=== PATIENT | female | born 1980 | race Caucasian/White ===

== ENCOUNTER 2018-12-14 15:13 | Emergency (ER) | payer SELFPAY ==
[2018-12-14] MEDS ORDERED: Betamethasone Soluspan 30 mg/5mL Inj Susp IM ONE (15:54)
[2018-12-14 20:35] VITALS: BP 102/59; PULSE 93
== END 2018-12-14 16:34 | disposition home or self-care (01) ==
LOC: C.EROB 15:13
DX: O47.03 False labor before 37 completed weeks of gestation, third trimester (principal); Z3A.35 35 weeks gestation of pregnancy
CPT/HCPCS: 96372; 99283; J0702

== ENCOUNTER 2018-12-15 15:40 | Emergency (ER) | payer SELFPAY ==
[2018-12-15 16:05] VITALS: BMI 23.5
[2018-12-15] MEDS ORDERED: Betamethasone Soluspan 30 mg/5mL Inj Susp IM ONE (16:24)
[2018-12-15 17:30] LABS: SQUAMOUS EPITHIAL 8 /hpf (0-5); URINE BACTERIA RARE (<OCC); URINE BILIRUBIN NEGATIVE (NEGATIVE); URINE BLOOD 1+ (NEGATIVE); URINE CLARITY Hazy (Clear); URINE COLOR Amber (YELLOW); URINE GLUCOSE (UA) 1+ mg/dL (Normal); URINE LEUKOCYTE ESTERASE NEG Leu/uL (Negative); URINE PROTEIN NEGATIVE (NEGATIVE); URINE UROBILINOGEN NORMAL mg/dL (0.2-1.0)
--- NOTE | 2018-12-15 17:30 | OBHP ---
Datetime: 12/15/2018 16:54 IP Adm Impression: , intrauterine ; No Active Labor; Intact Membranes IP Chief Complaint Other: second dose celestone IP Admit Plan: Observation/Evaluation Admit Comment, IP Provider: 38 y/o at 36w+0d ANJEL 01/[birth year] presents to triage from home with c /o of decreased movement since yesterday. She was in triage yesterday from Dr. Sun's OBGYN cl in for r/o ROM, which was negatve . Patient continues to deny leakage of fluid or having any vagina l discharge or vaginal bleeding. Pt received first dose of Celestne yesterday, per Dr. Sun's reques t and should receive her second dose today. Patient has a new complaint of decreased movement. She did not feel baby move after breakfas t and felt a little bit after lunch. Unable to provide number of contractions per hour, but she endor ses there can be a span of an hour without feeling movement. Patient also with "chest tightness " that started today and happens once in a while, but denies shortness of breath, cough or wheezing. Patient denies fever, chills, nausea, vomiting, dysuria. 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 ID: [id number]. 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 Sun for a few times when she came to the [place] a few we eks ago. Allergies: NKDA PMHx: denies Medications: PNV PSHx: Salpingectomyfor Ectopic SocHx: Patient came about a month ago from [place] with spouse and child. PE: see above A/P: 1- 36 weeks pregnanct female 2- Decreased Movement 3. Ocassional chest tightness without SOB and negative exam 4-Second dose of Celestone 12mg IM given, last dose given 24h before in triage yesterday 5-US ordered with BPP 6- NST reactive 7- Will continue monitoring 8- Cervical exam to follow after US -will determine from US and exam whether or not to admit for labor or discharge with labor precautions Chest tightness likely 2/2 growth in . -Plan discussed with Dr Lit Nowak DO PGY-1 Pt seen and examined with Dr. Nowak, per Dr. Sun's request, and agreed with her findings and POC Abdomen - PN: Normal Lungs - PN: Normal Heart - PN: Normal Neurologic - PN: Normal HEENT - PN: Normal General - PN: Normal Presentation-Admit: Vertex FHR - Baseline A Provider: 130 Comments, ACOG Physical Exam: -gravid uterus, nontender Gestation - Est Wks by US: 36.0 IP Hx Assessment: The History has been Reviewed and is Current EGA AdmitDate IP: 36.0 IP Chief Complaint: Decreased movement; Other NICHD Variability Prov Fetus A: Moderate 6-25bpm NICHD Accel Fetus A IP Provider: 15X15 NICHD Decel Fetus A IP Provider: None Datetime: 12/14/2018 15:58 Membranes, Provider: Intact Contraction Comments Provider: irregular Pool Provider: Negative Nitrazine Provider: Negative Vital Signs Provider: Reviewed FHR Category Provider Fetus A: Category I Dilatation, Provider: 3 Effacement, Provider: 60 Station, Provider: -3
--- NOTE | 2018-12-15 17:59 | US ---
Date of service: 12/15/2018 PROCEDURE: Biophysical profile HISTORY: Decreased Movement COMPARISON: None TECHNIQUE: Standard protocol for this study/examination. FINDINGS: FINDINGS: Biophysical profile score 8/8 Based on the followin. breathing movements: 2/2 2. Gross body movement: 2/2 3. tone: 2/2 4. Qualitative amniotic fluid index: 2/2 Cephalic presentation. Fundal placenta. No evidence of abruption or previa Gestational age derived from LMP 37 weeks. ANJEL 01/05/2019. Gestational age derived from the following biometric parameters 37 weeks 2 days. ANJEL 01/03/2019. Biparietal diameter 9.14 cm Head circumference 32.66 cm Abdominal circumference 33.68 cm Femur length 7.35 cm Estimated weight 3220 g Calculated cardiac rate 137 beats per min. Closed cervix measuring 2.95 cm IMPRESSION: Biophysical profile score 8/8. Thirty-seven weeks 2 days live intrauterine gestation.
--- NOTE | 2018-12-15 19:36 | OBDCSUM ---
Datetime: 12/15/2018 18:28 Discharged to, Provider: Home Follow up at, Provider: Dr Sun Disch Instr Activity: Normal activity Disch Instr Diet: Regular Discharge Instructions, Provider: Routine instructions given Discharge Time: 12/15/2018 18:29 Follow up in weeks, Provider: 12/20/18 Disch Referrals: None Disch Activity Restrictions: No exercising; No lifting; Minimize stair-climbing; No sexual activity; Nothing in vagina - [place], tampons, douche Discharge Comment, Provider: 38 y/o at 36w+0d ANJEL 01/12/[birth year] presents to triage from home with c/o of decreased movement since yesterday. She was seen in triage yesterday [facility] for r/o ROM, which was negatve . Patient continues to deny leakage of fluid or having any vagina l discharge or vaginal bleeding. Pt received first dose of Celestone yesterday, per Dr. Sun's reque st and should receive her second dose today. Patient has a new complaint of decreased movement. She did not feel baby move after breakfas t and felt a little bit after lunch. Unable to provide number of contractions per hour, but she endor ses there can be a span of an hour without feeling movement. Patient also with "chest tightness " that started today and happens once in a while, but denies shortness of breath, cough or wheezing. Patient denies fever, chills, nausea, vomiting, dysuria. 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 ID: [id number]. 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 Sun for a few times when she came [place] the [place] a few we eks ago. Allergies: NKDA PMHx: denies Medications: PNV PSHx: Salpingectomyfor Ectopic SocHx: Patient came about a month ago from [place] with spouse and child. PE: see above A/P: 1- 36 weeks pregnanct female 2- Decreased Movement 3. Ocassional chest tightness without SOB and negative exam 4-Second dose of Celestone 12mg IM given, last dose given 24h before in triage yesterday 5-US ordered with BPP and WNL with IVONNE 13.4, BPP 8/8 and EFW 7#'s 4oz 6- NST reactive 7. SVE unchanged from yesterday /-3 and no contractions recorded or palpated- 8. Chest tightness likely 2/2 growth in . 9. Pt reassured and discharged home with instructions and with labor precautions Pt left in Stable and Satisfactory condition Discharge Diagnosis Prov Other: Decreased Feetal Movement
[2018-12-15 22:42] VITALS: BP 104/63; PULSE 98; RESP 19; TEMP 97.3
== END 2018-12-15 18:41 | disposition home or self-care (01) ==
LOC: C.EROB 15:40
DX: O36.8130 Decreased fetal movements, third trimester, not applicable or unspecified (principal); Z3A.36 36 weeks gestation of pregnancy
CPT/HCPCS: 76815; 76818; 81001; 96372; 99284; J0702

== ENCOUNTER 2018-12-25 13:20 | Inpatient (IN) | payer OTHER ==
[2018-12-25] MEDS ORDERED: Oxytocin 30 UNIT 30 UNITS/500 ML BAG IV SCH (13:30)
[2018-12-25] MEDS ORDERED: Lactated Ringer's 1,000 ML IV SCH (13:30)
[2018-12-25] MEDS ORDERED: Lactated Ringer's 1,000 ML IV ONE (13:33)
[2018-12-25 14:09] LABS: BASO % 0.2 % (0.0-2.0); EOS % 0.3 % (0.0-4.0); HEMOGLOBIN 11.3 g/dL (11.0-16.0); LYMPH # 1.7 K/uL (1.0-4.3); LYMPH % 14.4 % (20.0-40.0); MEAN CELL VOLUME 93.4 fL (81.0-99.0); MEAN CORPUSCULAR HEMOGLOBIN 30.7 pg (27.0-31.0); MEAN CORPUSCULAR HGB CONC 32.9 g/dL (33.0-37.0); MEAN PLATELET VOLUME 8.4 fL (7.2-11.7); MONO # 0.8 K/uL (0.0-0.8); MONO % 6.5 % (0.0-10.0); NEUT # 9.4 K/uL (1.8-7.0); NEUT % 78.6 % (50.0-75.0); NRBC % 0.1 % (0.0-2.0); RBC 3.67 Mil/uL (3.80-5.20); RED CELL DISTRIBUTION WIDTH 13.7 % (11.5-14.5); WHITE BLOOD COUNT 11.9 K/uL (4.8-10.8)
[2018-12-25] MEDS ORDERED: Oxytocin 30 UNIT 30 UNITS/500 ML BAG IV ONE ×2 (14:46→17:58)
[2018-12-25] MEDS ORDERED: Fentanyl/Bupivacaine HCl 250 ML EPI ONE (14:47)
[2018-12-25 14:56] LABS: ALB/GLOB RATIO 1.3 (1.0-2.1); ALT/SGPT 9 U/L (9-52); AST/SGOT 21 U/L (14-36); BLOOD UREA NITROGEN 12 mg/dL (7-17); CALCIUM 8.9 mg/dl (8.6-10.4); GFR NON-AFRICAN AMERICAN > 60
[2018-12-25] MEDS ORDERED: Lidocaine Hydrochloride 5 ML INJ ONE (15:06)
--- NOTE | 2018-12-25 15:42 | OBADHP ---
Datetime: 12/25/2018 14:48 FHR - Baseline A Provider: 150 Contraction Comments Provider: q5min Vital Signs Provider: Reviewed; Within Normal Limits NICHD Variability Prov Fetus A: Moderate 6-25bpm NICHD Accel Fetus A IP Provider: 15X15 FHR Category Provider Fetus A: Category I NICHD Decel Fetus A IP Provider: None Dilatation, Provider: 6-7 Effacement, Provider: 80 Station, Provider: -3 Datetime: 12/25/2018 13:34 IP Chief Complaint Other: active labor [address] Sun's office Admit Comment, IP Provider: 38 y/o at 38.3 ANJEL 01/05/[address] Sun presents to triage from Dr. Sun's office after she examined her and was found to be 7 cm cervical dilation. She was in tria ge on 12/14 to r/o ROM, which was negative, and 12/15 for a second dose of Celestone (see past H_P note s). Patient continues to deny leakage of fluid or having any vaginal discharge or vaginal bleeding. Patient states she feels baby move regularly, but unable to provide number of contractions per lenora r. Denies chest pain, shortness of breath, cough, wheezing, fever, chills, nausea, vomiting, dysuria. 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 ID: [id number]. 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 Sun for a few times when [place] the [place] e[place] ago. Allergies: NKDA PMHx: denies Medications: PNV PSHx: Salpingectomy for Ectopic SocHx: Patient came about a month ago from [place] with spouse and child. vitals: see above PE: see above A/P: 1- 38.3 weeks female 2- initiate labor protocol: ice chips, IVF, admit labs 3- monitoring/ NST reactive 4- Patient requests epidural. Anesthesia consult placed. 5- pending routine admission labs 6- Anticipate a vaginal delivery case discussed with Dr Lit Nowak DO PGY-1 Pt seen and examined with Dr. Nowak and agree with her findings and POC Pelvic Type - PN: Adequate Extremities - PN: Normal Abdomen - PN: Normal Back - PN: Normal Breast - PN: Not Done Lungs - PN: Normal Heart - PN: Normal Thyroid - PN: Not Done Neurologic - PN: Normal HEENT - PN: Not Done General - PN: Normal Presentation-Admit: Vertex Membranes, Provider: Intact Gestation - Est Wks by US: 38.3 IP Hx Assessment: The History has been Reviewed and is Current IP Chief Complaint: Uterine contractions; Other Genitourinary Exam: Normal DTRs - PN: Not Done EGA AdmitDate IP: 38.3 IP Adm Impression: Term, intrauterine ; Active labor; Intact Membranes IP Admit Plan: Admit to unit; Initiate labor protocol Datetime: 12/15/2018 16:54 Comments, ACOG Physical Exam: -gravid uterus, nontender Datetime: 12/14/2018 15:58 Pool Provider: Negative Nitrazine Provider: Negative
--- NOTE | 2018-12-25 15:47 | OBPN ---
Datetime: 12/25/2018 14:48 IP Progress Impression: Normal progression of labor IP Informed Consent Obtain: Vaginal Delivery IP Procedures: Sterile Vag Exam IP Progress Plan: Continue present management; Augmentation; Anesthesia consult; Anticipate Vaginal Delivery Contraction Comments Provider: q5min FHR - Baseline A Provider: 150 Gestation - Est Wks by US: 38.3 Presentation-Admit: Vertex IP Progress Note Comment: Patient seen and examined at bedside. Patient is requesting epidural anest hesia. Offers no other complaints at this time VS reviewed SVE: 6-7/80/-3 (per Dr. Murrieta) A/P: 38 year old at 38w3d who presents in active phase of labor -Category I tracing -Requesting epidural, anesthesia notified -Plan to start pitocin afterwards for augmentation -GBS negative, no antibiotics needed at this time Plan discussed with Dr Lit Mcghee DO PGY-2 Vital Signs Provider: Reviewed; Within Normal Limits NICHD Accel Fetus A IP Provider: 15X15 FHR Category Provider Fetus A: Category I NICHD Variability Prov Fetus A: Moderate 6-25bpm Dilatation, Provider: 6-7 Effacement, Provider: 80 Station, Provider: -3 NICHD Decel Fetus A IP Provider: None Datetime: 12/25/2018 13:34 Membranes, Provider: Intact Datetime: 12/14/2018 15:58 Pool Provider: Negative Nitrazine Provider: Negative
[2018-12-25 15:48] LABS: SQUAMOUS EPITHIAL 3 /hpf (0-5); URINE BACTERIA OCC (<OCC); URINE BILIRUBIN NEGATIVE (NEGATIVE); URINE BLOOD 3+ (NEGATIVE); URINE CLARITY Turbid (Clear); URINE GLUCOSE (UA) NORMAL (Normal); URINE LEUKOCYTE ESTERASE 3+ Leu/uL (Negative); URINE PROTEIN NEGATIVE (NEGATIVE); URINE UROBILINOGEN NORMAL mg/dL (0.2-1.0)
[2018-12-25 15:49] LABS: URINE COLOR YELLOW (YELLOW)
[2018-12-25 15:58] LABS: HEPATITIS B SURFACE AG Negative (NEGATIVE)
--- NOTE | 2018-12-25 18:09 | OBPN ---
Datetime: 12/25/2018 17:38 IP Progress Impression: Normal progression of labor; Reassuring heart rate IP Procedures: Artificial ROM; Sterile Vag Exam IP Progress Plan: Continue present management; Augmentation; Anticipate Vaginal Delivery Membranes, Provider: Ruptured Amniotic Fluid Color, Provider: Clear Contraction Comments Provider: q2min Vital Signs Provider: Reviewed Dilatation, Provider: 7 Effacement, Provider: 90 Station, Provider: -2 Datetime: 12/25/2018 17:20 IP Informed Consent Obtain: Vaginal Delivery FHR - Baseline A Provider: 150 Gestation - Est Wks by US: 38.3 Presentation-Admit: Vertex IP Progress Note Comment: Patient seen and examined at bedside, Per Dr. Sun's request She is s/p epidural and resting comfortably. On pitocin 8MMU for augmentation Contractions Q 2-3 minutes SVE slightly changed Vital signs stable SVE: /-3 A/P: 38 year old at 38w3d in active labor, s/p epidural on pitocin -We will continue pitocin for augmentation -Anticipate vaginal delivery Plan discussed with Dr Lit cMghee DO PGY-2 Pt seen and examined with Dr. Mcghee and her findings and Plan of Care NICHD Accel Fetus A IP Provider: 15X15 FHR Category Provider Fetus A: Category I NICHD Variability Prov Fetus A: Moderate 6-25bpm NICHD Decel Fetus A IP Provider: None
[2018-12-25] MEDS ORDERED: Bupivacaine HCl 0.5% PF (10 ml) Inj ONE (22:25)
--- NOTE | 2018-12-25 23:41 | OBPN ---
Datetime: 12/25/2018 23:38 IP Progress Impression: Normal progression of labor IP Informed Consent Obtain: Vaginal Delivery IP Progress Plan: Continue present management Membranes, Provider: Ruptured FHR - Baseline A Provider: 150 Gestation - Est Wks by US: 38.3 Presentation-Admit: Vertex IP Progress Note Comment: pt seen adn examined c/p pressure s/p epdurai VSS VE 10cm EF: cat I TOCO q 2-3 min A/P @ 38+ wks GA fully dilated start pushing anticep nsvp Vital Signs Provider: Reviewed FHR Category Provider Fetus A: Category I Dilatation, Provider: 10 Effacement, Provider: 100 Station, Provider: 1 NICHD Decel Fetus A IP Provider: None Datetime: 12/25/2018 19:55 IP Progress Impression Other: Slow progression of labor IP Procedures: Intrauterine Pressure Catheter; Sterile Vag Exam Amniotic Fluid Color, Provider: Clear Contraction Comments Provider: q2-3 min NICHD Accel Fetus A IP Provider: 15X15 NICHD Variability Prov Fetus A: Moderate 6-25bpm
[2018-12-25] MEDS ORDERED: Oxycodone/Acetaminophen 5/325 mg Tab PO PRN ×2 (23:45)
[2018-12-25] MEDS ORDERED: Benzocaine/Menthol 20%-0.5% Topical Spray (60 ml) TOP PRN (23:45)
--- NOTE | 2018-12-25 23:48 | OBDS ---
DELIVERY PERSONNEL Nurse Hadoop Developer Certified: N/A Delivery Doctor: Autumn Sun MD Scrub Nurse: N/A Fingerprinter: Sally Hart RN Anesthesiologist: Dr. Ann Freight Hustler: SAME Resident: N/A MATERNAL INFORMATION Delivery Anesthesia: Epidural Medications in Delivery: PITOCIN 20 UNITS IN 1L LR Placenta Cultured: No Maternal Complications: None Provider Comments: pt was fully dilated and pushing. Atruamtic, spontaneous delivery of head, no nuc maya cord. Atruatmic, spontaneo delivery of atnerio followed by posteior shoulder followed by deliver of body. Both oral and nasal passages of the baby were bulb suctioned. umbilical cord was clamped and cut. baby handed to mother on abodmen with katie sorenson. cord blood and cord gases collected and sen t x 2. Fundus Firm. Manual removal o fplacenta. Fundus firm, good hemsotais, first degree perienal la ceration noted adn repaired iwth 2-0 chormic. good hemostaiss, no complicaitns live femalse inta cephalic presntation agpars 9,9 weigh tof 7lbs 2 ounces ebl 300ml LABOR SUMMARY EDC: 01/05/2019 00:00 No. Babies in Womb: 1 Attempted: No Labor Anesthesia: Epidural LABOR INFORMATION Reason for Induction: Not Applicable Onset of Labor: 12/25/2018 12:00 Complete Dilatation: 12/25/2018 22:30 Oxytocin: Augmentation Group B Beta Strep: Negative MEMBRANES Membranes Rupture Method: Artificial Rupture of Membranes: 12/25/2018 17:30 Length of Rupture (hrs): 5.58 Amniotic Fluid Color: Clear Amniotic Fluid Amount: Small Amniotic Fluid Odor: Normal STAGES OF LABOR Stage 1 hrs: 10 Stage 1 min: 30 Stage 2 hrs: 0 Stage 2 min: 35 Stage 3 hrs: 0 Stage 3 min: 10 Total Time in Labor hrs: 11 Total Time in Labor min: 15 VAGINAL DELIVERY Episiotomy: None Laceration Extension: First Degree Laceration Repair: Yes Initial Vag Sponge Count: 10 Final Vag Sponge Count: 20 Initial Vag Sharps Count: 0 Final Vag Sharps Count: 2 Sponge Count Correct: Yes Sharps Count Correct: Yes Count Comment: ALL ACCOUNTED FOR BABY A INFORMATION Delivery Date/Time: 12/25/2018 23:05 Method of Delivery: Vaginal Born in Route : No : N/A Forceps: N/A Vacuum Extraction: N/A Shoulder Dystocia : No SHOULDER DYSTOCIA BABY A Delivery Date/Time: 12/25/2018 23:05 PRESENTATION/POSITION BABY A Presentation: Cephalic Cephalic Presentation: Vertex Breech Presentation: N/A PLACENTA INFORMATION BABY A Placenta Delivery Time : 12/25/2018 23:15 Placenta Method of Delivery: Manual Removal Placenta Status: Delivered SCORES BABY A Heart Rate 1 min: >100 bpm Resp Effort 1 min: Good Cry Reflex Irritability 1 min: Cough or Sneeze or Pulls Away Muscle Tone 1 min: Active Motion Color 1 min: Body [place], Extremities Blue Resuscitation Effort 1 min: N/A SCORE 1 MIN: 9 INFANT INFORMATION BABY A Gestational Age at Delivery: 38.3 Gestational Status: Term Outcome : Liveborn Condition : Stable Infant Sex: Female IDENTIFICATION/MEDS BABY A ID Band Number: [id number] ID Band Location: Left Leg; Left Arm Sensor Applied: Yes Sensor Number: [id number] Sensor Location : Cord Clamp Vitamin K Given : Not Given Erythromycin Given: Not Given WEIGHT/LENGTH BABY A Infant Birthweight (gms): 3225 Infant Weight (lb): 7 Infant Weight (oz): 2 Length Inches: 19.50 Length cms: 49.5 CORD INFORMATION BABY A No. Cord Vessels: #3 Nuchal Cord : N/A Cord Blood Taken: Yes Suction: None ASSESSMENT BABY A Complications: None Physical Findings at Delivery: Within Normal Limits Respirations: Appears Normal Stripper [place]/ALS Called : No Infant Care By: Kvng THOMAS RN Transferred To: [facility]
[2018-12-26 08:36] LABS: BASO % 0.1 % (0.0-2.0); EOS % 0.3 % (0.0-4.0); LYMPH # 1.4 K/uL (1.0-4.3); LYMPH % 8.8 % (20.0-40.0); MEAN CELL VOLUME 93.4 fL (81.0-99.0); MEAN CORPUSCULAR HEMOGLOBIN 31.7 pg (27.0-31.0); MEAN PLATELET VOLUME 8.8 fL (7.2-11.7); MONO % 6.5 % (0.0-10.0); NEUT % 84.3 % (50.0-75.0); PLATELET COUNT 191 K/uL (130-400); RBC 2.95 Mil/uL (3.80-5.20); RED CELL DISTRIBUTION WIDTH 14.2 % (11.5-14.5); WHITE BLOOD COUNT 15.4 K/uL (4.8-10.8)
[2018-12-26 08:38] LABS: HEMOGLOBIN 9.4 g/dL (11.0-16.0)
[2018-12-26 09:04] LABS: BANDS 1 % (0-2); BASOPHIL 1 % (0-2); LYMPHOCYTE 10 % (20-40); MONOCYTE 5 % (0-10); NEUTROPHIL 83 % (50-75); PLATELET ESTIMATE NORMAL (NORMAL); TOTAL CELLS COUNTED 100
[2018-12-26 09:08] LABS: ANISOCYTOSIS SLIGHT; HYPOCHROMIC SLIGHT; POIKILOCYTOSIS SLIGHT
[2018-12-26 09:09] LABS: LARGE PLATELETS PRESENT; TARGET CELLS SLIGHT
[2018-12-26] MEDS: Multiple Vitamins Tab PO SCH (09:46)
--- NOTE | 2018-12-26 14:42 | OBPPN ---
Datetime: 12/26/2018 10:13 PP Pain Prov: Within normal limits PP Nausea Prov: Denies PP Flatus Prov: Yes PP Breasts Prov: Not Done PP Heart Prov: Normal PP Lungs Prov: Normal PP Abdomen/Uterus Prov: Normal PP Lochia Prov: Not Done PP Vulva/Perineum Prov: Not Done PP CVA Tenderness Prov: Not Done PP Extremities Prov: Normal PP C/S Incision Prov: Not Applicable PP Progress Prov: Normal PP Impression Prov: Normal progression PP Plan Prov: Continue present management PP Progress Note Prov: 38 y/o G2 now P2 delivered a female 8 lbs 4 oz vaginally last night by Dr. Hawkins tel. Today day 1. Patient was seen this morning at bedside by her baby. She states she is overall doing well. Lochia discharge present but patient without complaints about it. She has changed a total of 3 pads overnight. Urinating without pain or difficulty. Patient endorses passing gas. Den ies nausea, vomiting, fevers, chills. 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 She plans on exclusively . vitals and physical exam: see above A/P: 38 y/o s/p ppd #1 with manual placenta removal -resumed regular diet -bowel regimen as prescribed -pain control as prescribed - education -contraception education -cbc -s/p anbtiiocs will discuss case with Dr. Dino Nowak DO PGY1 agree with above pt seen and examined repeat cbc pain mangmetn IP PP Procedures: None Vital Signs Provider PP: Reviewed; Within Normal Limits
[2018-12-26 17:17] VITALS: O2SAT 97
[2018-12-27 08:28] LABS: BASO % 0.4 % (0.0-2.0); EOS # 0.1 K/uL (0.0-0.7); EOS % 1.3 % (0.0-4.0); HEMOGLOBIN 9.2 g/dL (11.0-16.0); LYMPH # 2.1 K/uL (1.0-4.3); LYMPH % 18.9 % (20.0-40.0); MEAN CELL VOLUME 94.2 fL (81.0-99.0); MEAN CORPUSCULAR HEMOGLOBIN 30.5 pg (27.0-31.0); MEAN CORPUSCULAR HGB CONC 32.4 g/dL (33.0-37.0); MEAN PLATELET VOLUME 8.6 fL (7.2-11.7); MONO # 0.8 K/uL (0.0-0.8); MONO % 7.1 % (0.0-10.0); NEUT % 72.3 % (50.0-75.0); RBC 3.01 Mil/uL (3.80-5.20); RED CELL DISTRIBUTION WIDTH 14.1 % (11.5-14.5); WHITE BLOOD COUNT 11.1 K/uL (4.8-10.8)
[2018-12-27 08:32] VITALS: BP 102/57; PULSE 79; RESP 18
[2018-12-27] MEDS ORDERED: Measles, Mumps, and Rubella 0.5 ML VIAL SC ONE (09:21)
[2018-12-27] MEDS: Multiple Vitamins Tab PO SCH (09:50)
[2018-12-27 20:32] VITALS: TEMP 97
--- NOTE | 2018-12-28 11:33 | OBPPN ---
Datetime: 12/28/2018 11:27 PP Pain Prov: Within normal limits PP Nausea Prov: Denies PP Flatus Prov: Yes PP Breasts Prov: Normal PP Heart Prov: Normal PP Lungs Prov: Normal PP Abdomen/Uterus Prov: Normal PP Lochia Prov: Normal PP Vulva/Perineum Prov: Normal PP CVA Tenderness Prov: Normal PP Extremities Prov: Normal PP Plan Prov: Discharge PP Progress Note Prov: dealyed entry pt annia adn exmiend 12/27 no ocmpaints
== END 2018-12-27 14:45 | disposition home or self-care (01) | DRG 807 ==
LOC: C.EROB 13:20 → C.4D 13:26 → UNDOADMIN 13:26 → C.4D 16:20 → C.4M 12-26 00:50
PROVIDERS: ADMIT Obstetrics & Gynecology; ATTEND Obstetrics & Gynecology
PROC: 10E0XZZ Delivery of Products of Conception, External Approach (ICD-10-PCS; principal; 2018-12-25)
PROC: 10907ZC Drainage of Amniotic Fluid, Therapeutic from Products of Conception, Via Natural or Artificial Opening (ICD-10-PCS; 2018-12-25)
PROC: 0HQ9XZZ Repair Perineum Skin, External Approach (ICD-10-PCS; 2018-12-25)
DX: O70.0 First degree perineal laceration during delivery (principal); Z37.0 Single live birth; Z3A.38 38 weeks gestation of pregnancy